=== PATIENT | female | born 1940 | race Caucasian/White ===

== ENCOUNTER → 2017-02-18 16:46 | Outpatient (CLI) | payer MEDICARE, OTHER ==
[2012-07-03 07:28] VITALS: BMI 31.6
== END | disposition home or self-care (01) ==
LOC: D.MAMMO 10:00
DX: Z12.31 Encounter for screening mammogram for malignant neoplasm of breast (principal)

== ENCOUNTER → 2018-10-10 14:28 | Outpatient (CLI) | payer MEDICARE, OTHER ==
[2012-07-03 07:28] VITALS: BMI 31.6
== END | disposition home or self-care (01) ==
LOC: D.HCCARDIO 14:28
PROVIDERS: ATTEND Internal Medicine Cardiovascular Disease
DX: R00.2 Palpitations (principal)

== ENCOUNTER 2020-03-08 14:20 | Inpatient (IN) | payer MEDICARE, OTHER ==
[~2020-03-08] VITALS: Ht 165.1 cm; Wt 81.6 kg
[2020-03-08] MEDS ORDERED: TOPROL XL50 MG PO (14:33)
[2020-03-08 15:03] LABS: BASOPHILS 0.1 % (0-2); EOSINOPHILS 0.1 % (0-7); HEMATOCRIT 40.8 % (36.0-48.0); HEMOGLOBIN 13.5 g/dL (12-16); IMMATURE GRANULOCYTES 0.2 % (0-5); LYMPHOCYTES 7.3 % (15-50); MCHC 33.1 g/dL (31.0-37.0); MCV 90.7 fL (80.0-100.0); MEAN PLATELET VOLUME 9.7 fL (7.4-10.4); MONOCYTES 6.1 % (2-11); NEUTROPHILS 86.2 % (40-80); PLATELET COUNT 220 10x3/uL (130-400); RDW 12.8 % (11.5-14.5); WBC 13.5 10x3/uL (4.8-10.8)
[2020-03-08 15:13] LABS: ANION GAP 11.8 mmol/L (8-16); CALCIUM 8.9 mg/dL (8.5-10.1); CARBON DIOXIDE 25.1 mmol/L (21.0-32.0); CREATININE - SERUM 1.1 mg/dL (0.6-1.3); POTASSIUM - SERUM 3.9 mmol/L (3.5-5.1)
[2020-03-08 15:16] LABS: ALBUMIN 3.5 g/dL (3.4-5.0); APTT 27.1 SECONDS (22.8-39.4); BILIRUBIN - TOTAL 0.44 mg/dL (0.2-1.3); INR 0.89 (0.85-1.17); PROTEIN - SERUM 7.3 g/dL (6.4-8.2); PROTIME 12.1 SECONDS (11.6-15.0)
[2020-03-08 16:36] VITALS: BP 176/61
[2020-03-08] MEDS ORDERED: PROAIR HFA8.5 G1 INH (17:28)
[2020-03-08] MEDS ORDERED: ALENDRONAT70 MG/75 M PO (17:32)
[2020-03-08 17:46] VITALS: BP 146/88; BMI 18.0
--- NOTE | 2020-03-08 19:00 | NUR ---
PATIENT ALERT AND ORIENTED X 3, ALL BUT EXACT TIME. DAUGHTER AT BEDSIDE. PATIENT PP CHECK IN RIGHT LE PALPABLE. PATIENT MOVES TOES ON COMMAND. ASSESSMENT COMPLETE. PIC IN LEFT AC. PATIENT HAS MORPHINE CHERRY PICKER OPERATOR. VERBALIZES UNDERSTANDING OF NPO STATUES, HIBBA CLEANSE, AND CONSENTS. DENIES FURTHER NEEDS. BED LOCKED AND LOWERED. CALL LIGHT CLOSE. CPOC.
[2020-03-08 21:00] VITALS: BP 134/64
--- NOTE | 2020-03-09 01:20 | NUR ---
RESTING WITH NO SIGNS OR SYMPTOMS OF DISTRESS AT THIS TIME. CALL LIGHT REMAINS CLOSE. DAUGHTER REMAINS AT BEDSIDE.
--- NOTE | 2020-03-09 02:55 | NUR ---
ANSWERED PATIENT CALL LIGHT. PATIENT IN PAIN AND TREMBLING. PROVIDED BOLUS DOSE PER ORDER. ICE PACKS APPLIED X 2. PROVIDED SUPPORT TO PATIENT. PAIN MEDICATION BECAME EFFECTIVE. PROVIDED EDUCATION TO BOTH DAUGHTER AND PATIENT. DENIES FURTHER NEEDS AT THIS TIME. CALL LIGHT REMAINS CLOSE. CPOC.
[2020-03-09 06:58] LABS: BASOPHILS 0.1 % (0-2); EOSINOPHILS 0.3 % (0-7); HEMATOCRIT 33.9 % (36.0-48.0); HEMOGLOBIN 10.9 g/dL (12-16); IMMATURE GRANULOCYTES 0.2 % (0-5); LYMPHOCYTES 15.4 % (15-50); MCH 29.5 pg (26.0-34.0); MCHC 32.2 g/dL (31.0-37.0); MCV 91.9 fL (80.0-100.0); MEAN PLATELET VOLUME 10.1 fL (7.4-10.4); MONOCYTES 10.2 % (2-11); NEUTROPHILS 73.8 % (40-80); PLATELET COUNT 204 10x3/uL (130-400); RBC 3.69 10x6/uL (4.00-5.40); RDW 13.3 % (11.5-14.5)
[2020-03-09 07:06] LABS: WBC 9.4 10x3/uL (4.8-10.8)
[2020-03-09 07:31] LABS: ALBUMIN 2.9 g/dL (3.4-5.0); ANION GAP 11.2 mmol/L (8-16); BILIRUBIN - TOTAL 0.4 mg/dL (0.2-1.3); CALCIUM 8.1 mg/dL (8.5-10.1); CARBON DIOXIDE 23.8 mmol/L (21.0-32.0); PROTEIN - SERUM 6.2 g/dL (6.4-8.2)
[2020-03-09 09:01] VITALS: BP 136/62
[2020-03-09 14:34] VITALS: BP 142/62
[2020-03-09 20:05] VITALS: BP 134/65
--- NOTE | 2020-03-09 20:34 | NUR ---
AWAKE,ALERT,NO COMPLAINTS VOICED. IV TO LAC INTACT WITHOUT REDNESS OR EDEMA NOTED.DRESSINGS TO RIGHT HIP INTACT WITHOUT DRAINAGE NOTED.NO COMPLAINTS OF PAIN AT PRESENT. CL IN REACH. DAUGHTER AT BEDSIDE.
[2020-03-10] VITALS: BP 130/69
[2020-03-10 04:00] VITALS: BP 128/72
[2020-03-10 04:59] LABS: BASOPHILS 0 % (0-2); EOSINOPHILS 0.1 % (0-7); HEMATOCRIT 30.1 % (36.0-48.0); HEMOGLOBIN 9.6 g/dL (12-16); IMMATURE GRANULOCYTES 0.3 % (0-5); LYMPHOCYTES 12.6 % (15-50); MCH 29.3 pg (26.0-34.0); MCHC 31.9 g/dL (31.0-37.0); MCV 91.8 fL (80.0-100.0); MEAN PLATELET VOLUME 9.8 fL (7.4-10.4); MONOCYTES 14.7 % (2-11); NEUTROPHILS 72.3 % (40-80); PLATELET COUNT 170 10x3/uL (130-400); RBC 3.28 10x6/uL (4.00-5.40); RDW 13.2 % (11.5-14.5); WBC 9.7 10x3/uL (4.8-10.8)
[2020-03-10 05:22] LABS: ANION GAP 9.3 mmol/L (8-16); CALCIUM 7.4 mg/dL (8.5-10.1); CARBON DIOXIDE 25.2 mmol/L (21.0-32.0); CREATININE - SERUM 1.1 mg/dL (0.6-1.3); MAGNESIUM - SERUM 1.7 mg/dL (1.8-2.4); POTASSIUM - SERUM 4.5 mmol/L (3.5-5.1)
--- NOTE | 2020-03-10 07:00 | NUR ---
A&O RESTING IN BED WITH EYES OPEN. NO C/O PAIN. NO S/S OF ACUTE DISTRESS NOTED. POD #2 RIGHT HIP NAILING, DRESSING C/D/I. ANDERSEN CATHETER PRESENT. ON ELIQUIS FOR DVT PROPHALAXIS. DAUGHTER AT BEDSIDE. IV TO LEFT AC, 1/2 NS INFUSING AT 50ML/HR. SITE PATENT WITHOUT REDNESS OR SWELLING. MAG 1.7 THIS AM, WILL FOLLOW ELECTROLYTE PROTOCOL. DENIES ANY NEEDS AT THIS TIME. CALL LIGHT IN REACH. WILL CONTINUE TO MONITOR.
--- NOTE | 2020-03-10 08:37 | OP ---
PATIENT NAME: BOBBY TRUONG MEDICAL RECORD: [id number] :40 LOCATION:D[id number] ADMISSION DATE:03/08/20 SURGEON: KIMO BARTON DO DATE OF OPERATION: 03/08/2020 PROCEDURE PERFORMED: Right hip intramedullary nailing. PREOPERATIVE DIAGNOSIS: Right hip intertrochanteric fracture. POSTOPERATIVE DIAGNOSIS: Right hip intertrochanteric fracture. INDICATIONS: Ms. Truong is an 80-year-old female who fell yesterday and was lying on her floor for approximately 4 hours, is brought to the ER, seemed to have a right hip fracture. She did not have any other pain anywhere else other than hitting her head. I saw her in the ER and told her we need to fix this and she would be at risk for infection, bleeding, damage to nerves or vessels, need for further surgery, malunion, nonunion, continued pain, blood clots, and even and she signed the consent. SURGEON: Kimo Barton DO DESCRIPTION OF PROCEDURE: Patient was taken to the operative suite, laid in supine position, given general anesthetic and intubated. She was given 2 grams Ancef preoperatively. She was then moved over to the [place] table and the right hip was prepped and draped in sterile fashion. A timeout was performed. Everyone was in agreeance with correct, side, site, the patient and procedure. I then attempted reduction, but due to the reverse obliquity of the fracture, I would decided I would open it and clamp it and then put the nail down which is what I did. I then made a lateral incision over the hip, made careful dissection down to the hip and then with bone reduction clamps, reduced the fracture and then got a good starting point for the nail in the greater trochanter and then opened it up with an awl. I then started reaming. We went from an 8 to a 13, measured the nail length to be 360 was what were were going to use. I then reamed up to a 13 and then put the nail down. Once it was in appropriate position and the fracture was reduced, I put the lag screw in and 95 in length, it was in good position on AP and lateral, adequate. I then did not have her for an AR screw. She had very thin femoral neck and so we abandoned that by locking screw up in the nail through the proximal limb, removed the jig and the bone clamp and the fracture held nicely. I then went distally and got perfect circles and did a distal locking screw in the dynamic hole and measured to be a 38, was put in and fit well. Then, I irrigated thoroughly the sites with normal saline. I then closed the IT band, a large lateral incision with a #1 Vicryl in a [id number] fashion and closed the skin at all other sites with 2-0 Vicryl in interrupted fashion. Prineo glue placed on them and dressed with a Telfa and Tegaderm. She was then awakened and taken to recovery in stable condition. Blood loss approximately 250 mL. COMPLICATIONS: None. TRANSINT:[id number] Voice Confirmation ID: [id number] DOCUMENT ID: [id number] OPERATIVE REPORT [id number] BOBBY TRUONG MICHAEL D, DO at 0837 CC: [id number] DICTATION DATE: 03/09/20 1344 SENIOR ASIC ENGINEER: 03/09/20 2138 ADM IN [facility] [address] [place] [address]
[2020-03-10 08:39] VITALS: BP 141/76
[2020-03-10 12:29] VITALS: BP 137/50
[2020-03-10 13:34] VITALS: Ht 165.1 cm; Wt 81.6 kg
[2020-03-10 17:15] VITALS: BP 147/59
--- NOTE | 2020-03-10 18:30 | NUR ---
RESTING IN BED WITH EYES OPEN. NO C/O PAIN. NO S/S OF ACUTE DISTRESS NOTED. CALL LIGHT IN REACH. WILL CONTINUE TO MONITOR.
[2020-03-10 20:00] VITALS: BP 128/65
--- NOTE | 2020-03-10 20:25 | NUR ---
LYING IN BED TALKING TO DAUGHTER. ALERT AND ORIENTED X4. RES EVEN AND NONLABORED. DRSG X2 NOTED TO RT HIP WITH OLD DRAINAGE MARKED. RATES PAIN IN RT HIP 8. ANDERSEN CATH PATENT AND DRAINING CLEAR YELLOW URINE. 1/2 NS @ 50 ML/HR INFUSING IN LT AC. JIMMY WAIVER ON CHART. NO DISTRESS. SR ELEVATED X2. CL IN REACH.
[2020-03-10 20:39] LABS: BILIRUBIN NEGATIVE (NEGATIVE); GLUCOSE NEGATIVE (NEGATIVE); KETONE NEGATIVE (NEGATIVE); NITRITE NEGATIVE (NEGATIVE); UROBILINOGEN NORMAL (NORMAL)
--- NOTE | 2020-03-10 20:45 | NUR ---
MEDICATED WITH NORCO 10MG FOR C/O RT HIP PAIN. CL IN REACH
--- NOTE | 2020-03-11 01:44 | NUR ---
HAS RESTED WELL SO FAR THIS SHIFT. LYING IN BED WITH EYES CLOSED. RESP NONLABORED. NO DISTRESS. CL IN REACH.
[2020-03-11 04:30] VITALS: BP 101/56
--- NOTE | 2020-03-11 04:41 | NUR ---
MEDICATED WITH NORCO FOR C/O RT HIP PAIN RATING 8. CL IN REACH.
[2020-03-11 07:02] LABS: BASOPHILS 0.1 % (0-2); EOSINOPHILS 0.5 % (0-7); IMMATURE GRANULOCYTES 0.2 % (0-5); LYMPHOCYTES 21.8 % (15-50); MCH 29.1 pg (26.0-34.0); MCV 90.9 fL (80.0-100.0); MEAN PLATELET VOLUME 9.6 fL (7.4-10.4); MONOCYTES 12.5 % (2-11); NEUTROPHILS 64.9 % (40-80); PLATELET COUNT 143 10x3/uL (130-400); RBC 2.75 10x6/uL (4.00-5.40); RDW 13.4 % (11.5-14.5); WBC 8.3 10x3/uL (4.8-10.8)
[2020-03-11 07:30] LABS: ANION GAP 9.4 mmol/L (8-16); CALCIUM 7.2 mg/dL (8.5-10.1); CARBON DIOXIDE 24.7 mmol/L (21.0-32.0); CREATININE - SERUM 0.9 mg/dL (0.6-1.3); POTASSIUM - SERUM 4.1 mmol/L (3.5-5.1)
--- NOTE | 2020-03-11 07:34 | NUR ---
PT IS RESTING IN BED WITH EYES CLOSED. RESPIRATIONS ARE EVEN AND UNLABORED. PT IS EASILY AROUSED WITH VERBAL STIMULATION. PT IS AAO X 4 UPON AROUSAL AND ANSWERS ALL ORIENTATION QUESTIONS APPROPRIATLEY. DRESSING TO RIGHT HIP NOTED WITH SCANT AMOUNT OF DRAINAGE NOTED AND MARKED ON DRESSING. ANDERSEN CATHETER NOTED AND DRAINING WITHOUT DIFFICULTY. YELLOW URINE NOTED TO COLLECTION CHAMBER. FALL WAIVER SIGNED AND IN PT CHART. PT DENIES PRESENCE OF PAIN/N/V/NUMBNESS/TINGLING AT THIS TIME. BED IS IN THE LOWEST POSITIN. CALL LIGHT AND BEDSIDE TABLE ARE WITHIN REACH. SIDE RAILS X 2. PT DENIES FURTHER NEEDS. WILL CONT TO MONITOR.
[2020-03-11 08:00] VITALS: BP 105/57
--- NOTE | 2020-03-11 10:31 | NUR ---
Rehab Note- Acute Inpatient REhab prescreen order received. THe patient is a good inpatient acute rehab candidate when medically stable and in agreeance with [facility] Acute Inpatient Rehab. Will follow at this time. Thank you for this referral! Opal Vega RN Clinical Liaison, [facility] Rehab
[2020-03-11 12:00] VITALS: BP 118/47
[2020-03-11] MEDS ORDERED: ZOFRAN4 MG PO (12:05)
[2020-03-11] MEDS ORDERED: ELIQUIS2.5 MG PO (12:05)
[2020-03-11] MEDS ORDERED: HYDROCODON-ACE1 EAC7 PO (12:05)
[2020-03-11] MEDS ORDERED: Narcan INJ IV (12:05)
[2020-03-11] MEDS ORDERED: HYDROCODON-ACE1 EA10 PO (12:05)
[2020-03-11] MEDS ORDERED: DILAUDID INJ2 MG/ML IV (12:05)
[2020-03-11] MEDS ORDERED: COLACE100 MG PO (12:06)
[2020-03-11] MEDS ORDERED: PROTONIX40 MG PO (12:06)
[2020-03-11 16:00] VITALS: BP 135/85
--- NOTE | 2020-03-11 17:00 | NUR ---
ALL DISCHARGE INSTRUCTIONS COVERED WITH PT AND PT FRIEND AT BEDSIDE. PT DENIES FURTHER QUESTIONS/CONCERNS/NEEDS. ALL DISCHARGE PAPERS SIGNED BY PT FRIEND SY FIGUEROA PER PT REQUEST. PT TO EAT DINNER AND NOTIFY NURSE WHEN READY FOR TRANSPORT DOWN TO REHAB FACILITY. SIGNED DC PAPERS PLACED IN PT CHART. PIV TO LEFT AC REMOVED WITH CATHETER TIP INTACT. DRESSING APPLIED. CLAMPED ANDERSEN IN PLACE. PT EDUCATED ON BLADDER TRAINING AND DENIES FURTHER QUESTIONS/CONCERNS/NEEDS AT THIS TIME.
--- NOTE | 2020-03-11 17:00 | NUR ---
ANDERSEN CLAMPED FOR BLADDER TRAINING.
--- NOTE | 2020-03-11 18:10 | NUR ---
PT TRANSPORTED FROM ROOM VIA WHEELCHAIR ESCORTED BY TOO JAMES CNA TO GO TO REHAB. PT DENIES FURTHER QUESTIONS/CONCERNS/NEEDS AND THANKS THIS NURSE FOR GIVEN DURING THIS SHIFT.
--- NOTE | 2020-03-11 18:40 | MORECARE ---
CASE MANAGEMENT DISCHARGE SUMMARY PATIENT: BOBBY FIGUEROA UNIT: [id number] ADM DATE: 03/08/20 AGE: 80 : 40 SEX: F ROOM/BED: D.2211 AUTHOR: LIVAN COSME PHYSICIAN: REFERRING PHYSICIAN: ABIMBOLA ANGELO MD DATE OF SERVICE: 03/11/20 Discharge Plan Patient Name: BOBBY FIGUEROA Facility: [facility]:[place] : 1940 Planned Disposition: Inpatient Rehab Anticipated Discharge Date: Discharge Date: 03/11/2020 Expected LOS: Initial Reviewer: [email or web address] Initial Review Date: 03/08/2020 Generated: 03/11/20 7:39 pm Coverage Notice Reviewer: [email or web address] Yasir Cunha Notice Issued Date-Time: 03/11/2020 16:05 Notice Type: IM Discharge Notice Notice Delivered To: Family Member Relationship to Patient: Daughter in Law Marine Meteorologist Name: MEHUL FIGUEROA Delivery Method: HAND - Hand Delivered Susanne Days: Prior Verbal Notification: Recipient Understood Notice: Yes Recipient Signature: Yes Med Rec Note Co-signed by Attending: Coverage Notice Comment: Reviewer: [email or web address] Yasir Cunha Notice Issued Date-Time: 03/11/2020 16:05 Notice Type: Patient Choice Letter Notice Delivered To: Family Member Relationship to Patient: Daughter in Law Marine Meteorologist Name: MEHUL FIGUEROA Delivery Method: HAND - Hand Delivered Susanne Days: Prior Verbal Notification: Recipient Understood Notice: Yes Recipient Signature: Yes Med Rec Note Co-signed by Attending: Coverage Notice Comment: INPATIENT REHAB [facility] Patient Name: BOBBY FIGUEROA Page [id number] at 1840 All edits/amendments must be made on the electronic document DICTATION DATE: 03/11/201838 REAL ESTATE OFFICE SUPERVISOR: VICKI 03/11/201838 RPT#: [id number] DC DATE:03/11/20 STATUS: DIS IN [facility] [address] [place] [address] END OF REPORT
--- NOTE | 2020-03-11 18:48 | MORECARE ---
CASE MANAGEMENT DISCHARGE SUMMARY PATIENT: BOBBY FIGUEROA UNIT: [id number] ADM DATE: 03/08/20 AGE: 80 : 40 SEX: F ROOM/BED: D.2211 AUTHOR: CARMELINA,DOC PHYSICIAN: REFERRING PHYSICIAN: ABIMBOLA ANGELO MD DATE OF SERVICE: 03/11/20 Discharge Plan Patient Name: BOBBY FIGUEROA Facility: [facility]:[place] : 1940 Planned Disposition: Inpatient Rehab Anticipated Discharge Date: Discharge Date: 03/11/2020 Expected LOS: Initial Reviewer: [email or web address] Initial Review Date: 03/08/2020 Generated: 03/11/20 7:47 pm Comments DCP- Discharge Planning Updated by [email or web address]: Kathia Cunha on 03/11/20 5:[address] Patient Name: BOBBY FIGUEROA Admission Status: Elective Accout number: [id number] Admission Date: 03-08-2020 : 1940 Admission Diagnosis:DISPLACED INTERTROCHANTERIC FRACTURE OF RIGHT FEMUR, IN Attending: PETEY, Current LOS: 3 Anticipated DC Date: Planned Disposition: Inpatient Rehab Primary Insurance: MEDICARE A & B Discharge Planning Comments:CM met with patient to complete initial dc planning assessment. CM educated patient on the CM role and verbal consent given by patient to complete assessment. Patient lives at home with family. Patient is independent. At discharge patient plans to return home and feels this is a safe discharge. CM discussed availability of home health, rehab services, and medical equipment. Patient will need BSC upon discharge. Patient signed DAKSHA for inpatient rehab. Patient will have family to transport home. Patient denied known discharge needs at this time. D/C IMM signed @ 1605 CM will continue to follow and will assist as needed with dc plans/needs. Proof Sorter: Kathia Cunha DCPIA - Discharge Planning Initial Assessment Updated by [email or web address]: Kathia Cunha on 03/11/20 6:42 pm * Is the patient Alert and Oriented? Yes * How many steps to enter\exit or inside your home? * PCP PETEY * Pharmacy [facility] [address] * Preadmission Environment Home with Family * ADLs Independent * Other Equipment WALKER, CANE, SHOWER CHAIR * List name and contact numbers for known caregivers / representatives who currently or will assist patient after discharge: MEHUL FIGUEROA - DIL- [phone] GODFREY RODRIGUEZ - DAUGHTER - [phone] * Verbal permission to speak to the caregivers and representatives has been obtained from the patient. Yes * Community resources currently utilized None * Additional services required to return to the preadmission environment? No * Can the patient safely return to the preadmission environment? Yes * Has this patient been hospitalized within the prior 30 days at any hospital? No Coverage Notice Reviewer: [email or web address] Cunha Notice Issued Date-Time: 03/11/2020 16:05 Notice Type: IM Discharge Notice Notice Delivered To: Family Member Relationship to Patient: Daughter in Law Automotive Parts Counter Associate Name: MEHUL FIGUEROA Delivery Method: HAND - Hand Delivered Susanne Days: Prior Verbal Notification: Recipient Understood Notice: Yes Recipient Signature: Yes Med Rec Note Co-signed by Attending: Coverage Notice Comment: Reviewer: [email or web address] Cunha Notice Issued Date-Time: 03/11/2020 16:05 Notice Type: Patient Choice Letter Notice Delivered To: Family Member Relationship to Patient: Daughter in Law Automotive Parts Counter Associate Name: MEHUL FIGUEROA Delivery Method: HAND - Hand Delivered Susanne Days: Prior Verbal Notification: Recipient Understood Notice: Yes Recipient Signature: Yes Med Rec Note Co-signed by Attending: Coverage Notice Comment: INPATIENT REHAB [facility] Last DP export: 03/11/20 5:40 p Patient Name: BOBBY FIGUEROA Page [id number] at 1848 All edits/amendments must be made on the electronic document DICTATION DATE: 03/11/201846 PROFESSOR OF PUBLIC ADMINISTRATION: VICKI 03/11/201846 RPT#: [id number] DC DATE:03/11/20 STATUS: DIS IN [facility] [address] [place] [address] END OF REPORT
--- NOTE | 2020-03-13 13:36 | MORECARE ---
CASE MANAGEMENT DISCHARGE SUMMARY PATIENT: BOBBY FIGUEROA UNIT: [id number] ADM DATE: 03/08/20 AGE: 80 : 40 SEX: F ROOM/BED: D.2211 AUTHOR: CARMELINA,DOC PHYSICIAN: REFERRING PHYSICIAN: ABIMBOLA ANGELO MD DATE OF SERVICE: 03/13/20 Discharge Plan Patient Name: BOBBY FIGUEROA Facility: [facility]:[place] : 1940 Planned Disposition: Inpatient Rehab Anticipated Discharge Date: Discharge Date: 03/11/2020 Expected LOS: Initial Reviewer: [email or web address] Initial Review Date: 03/08/2020 Generated: 03/13/20 2:35 pm Comments DCP- Discharge Planning Updated by [email or web address]: Kathia Cunha on 03/11/20 5:[address] Patient Name: BOBBY FIGUEROA Admission Status: Elective Accout number: [id number] Admission Date: 03-08-2020 : 1940 Admission Diagnosis:DISPLACED INTERTROCHANTERIC FRACTURE OF RIGHT FEMUR, IN Attending: PETEY, Current LOS: 3 Anticipated DC Date: Planned Disposition: Inpatient Rehab Primary Insurance: MEDICARE A & B Discharge Planning Comments:CM met with patient to complete initial dc planning assessment. CM educated patient on the CM role and verbal consent given by patient to complete assessment. Patient lives at home with family. Patient is independent. At discharge patient plans to return home and feels this is a safe discharge. CM discussed availability of home health, rehab services, and medical equipment. Patient will need BSC upon discharge. Patient signed DAKSHA for inpatient rehab. Patient will have family to transport home. Patient denied known discharge needs at this time. D/C IMM signed @ 1605 CM will continue to follow and will assist as needed with dc plans/needs. Olericulture Teacher: Kathia Cunha DCPIA - Discharge Planning Initial Assessment Updated by [email or web address]: Kathia Cunha on 03/11/20 6:42 pm * Is the patient Alert and Oriented? Yes * How many steps to enter\exit or inside your home? * PCP PETEY * Pharmacy [facility] [address] * Preadmission Environment Home with Family * ADLs Independent * Other Equipment WALKER, CANE, SHOWER CHAIR * List name and contact numbers for known caregivers / representatives who currently or will assist patient after discharge: MEHUL FIGUEROA - DIL- [phone] GODFREY RODRIGUEZ - DAUGHTER - [phone] * Verbal permission to speak to the caregivers and representatives has been obtained from the patient. Yes * Community resources currently utilized None * Additional services required to return to the preadmission environment? No * Can the patient safely return to the preadmission environment? Yes * Has this patient been hospitalized within the prior 30 days at any hospital? No Coverage Notice Reviewer: [email or web address] Cunha Notice Issued Date-Time: 03/11/2020 16:05 Notice Type: IM Discharge Notice Notice Delivered To: Family Member Relationship to Patient: Daughter in Law Shingle Inspector Name: MEHUL FIGUEROA Delivery Method: HAND - Hand Delivered Susanne Days: Prior Verbal Notification: Recipient Understood Notice: Yes Recipient Signature: Yes Med Rec Note Co-signed by Attending: Coverage Notice Comment: Reviewer: [id number] Cunha Notice Issued Date-Time: 03/11/2020 16:05 Notice Type: Patient Choice Letter Notice Delivered To: Family Member Relationship to Patient: Daughter in Law Shingle Inspector Name: MEHUL FIGUEROA Delivery Method: HAND - Hand Delivered Susanne Days: Prior Verbal Notification: Recipient Understood Notice: Yes Recipient Signature: Yes Med Rec Note Co-signed by Attending: Coverage Notice Comment: INPATIENT REHAB [facility] Last DP export: 03/11/20 5:48 p Patient Name: BOBBY FIGUEROA Page [id number] at 1336 All edits/amendments must be made on the electronic document DICTATION DATE: 03/13/20 1335 DISTRICT MEDICAL EXAMINER: VICKI 03/13/20 1335 RPT#: [id number] DC DATE:03/11/20 STATUS: DIS IN [facility] [address] [place] [address] END OF REPORT
== END 2020-03-11 18:37 | DRG 482 ==
LOC: D.ER 14:20 → D.MS 16:29
PROVIDERS: Family Medicine; Family Medicine Adult Medicine; ADMIT Family Medicine; ATTEND Family Medicine
PROC: 0QH636Z Insertion of Intramedullary Internal Fixation Device into Right Upper Femur, Percutaneous Approach (ICD-10-PCS; principal; 2020-03-08)
DX: S72.141A Displaced intertrochanteric fracture of right femur, initial encounter for closed fracture (principal); I10 Essential (primary) hypertension; W19.XXXA Unspecified fall, initial encounter; M25.511 Pain in right shoulder; S00.03XA Contusion of scalp, initial encounter

== ENCOUNTER 2020-03-11 18:40 | Inpatient (IN) | payer MEDICARE, OTHER ==
[~2020-03-11] VITALS: Ht 165.1 cm; Wt 81.6 kg
[~2020-03-11 18:40] MED LIST: ALENDRONAT70 MG/75 M PO; COLACE100 MG PO; DILAUDID INJ2 MG/ML IV; ELIQUIS2.5 MG PO; HYDROCODON-ACE1 EA10 PO; HYDROCODON-ACE1 EAC7 PO; Narcan INJ IV; PROAIR HFA8.5 G1 INH; PROTONIX40 MG PO; TOPROL XL50 MG PO; ZOFRAN4 MG PO
--- NOTE | 2020-03-11 19:22 | NUR ---
RECIEVED REPORT FROM OFFGOING. ALERT AND ORIENTED X4. UP WITH ASSIST. BLADDER TRAINING IN PLACE. DSG X3 TO RT HIP CDI. DENIES ANY NEEDS AT THIS TIME.
[2020-03-11 23:03] VITALS: BP 139/66
--- NOTE | 2020-03-12 04:33 | NUR ---
RESTING IN BED WITH HOB ELEVATED AND EYES OPEN. C/O NEEDING TO URINATE. REMINDED HER THAT SHE HAS A ANDERSEN CATHETERR IN AND IT WAS NOT TIED OFF AT THIS TIME. ASKED IF SHE FELT THE NEED TO URINATE FREQUENTLY AND REPLIED "YES". WILL REPORT TO ONCOMMING NURSE. NOT SLEEPING WELL TONIGHT STATED LAST TIME SHE WOKE UP IT WAS 0230.APPROXIMATLY 2 HOURS AGO. DENIES ANY OTHER NEEDS.
--- NOTE | 2020-03-12 06:30 | NUR ---
F/C D/C'D THIS AM. C/O HIP PAIN WHEN TURNING TO PUT A BRIEF ON. MED GIVEN PER ORDERS. U/A COLLECTED PRIOR TO D/C.
[2020-03-12 08:27] VITALS: BP 101/60
[2020-03-12 08:37] LABS: BILIRUBIN NEGATIVE (NEGATIVE); KETONE NEGATIVE (NEGATIVE); NITRITE NEGATIVE (NEGATIVE); UROBILINOGEN NORMAL (NORMAL)
[2020-03-12 08:38] LABS: BACTERIA FEW /hpf (NEGATIVE); EPITHELIAL CELLS RARE /hpf (0-5); RED CELLS - URINE 0-5 /hpf (0-5); WHITE CELLS - URINE OCC /hpf (NEGATIVE)
[2020-03-12 10:34] VITALS: Ht 165.1 cm; Wt 81.6 kg
--- NOTE | 2020-03-12 10:51 | NUR ---
SITTING IN WC IN ROOM. JUST FINISHED WITH THERAPY. PAIN MEDS GIVEN FOR PAIN OF 8/10 TO RLE. HAS OVERHEAD FRAME WITH TRAPEZE. CALL LIGHT IN REACH
[2020-03-12 19:06] VITALS: BP 151/81
--- NOTE | 2020-03-12 19:22 | NUR ---
RECIEVED UP IN BED WITH EYES OPEN AND TV ON. ALERT AND ORIENTED X4. HAD THERAPY TODAY AND STATES VERY TIRED. EXPLAINED THE NEW ORDER FOR ATIVAN. VERBAL ACKNOWLEDGEMENT GIVEN.DENIES ANY NEEDS AT THIS TIME.
[2020-03-13 08:00] VITALS: BP 141/76
--- NOTE | 2020-03-13 10:45 | NUR ---
STILL C/O PAIN TO RT HIP. PAIN MEDS GIVEN ORDERED AND REQUESTED. USES OVER HEAD FRAME AND TRAPEZE ON BED.
--- NOTE | 2020-03-13 11:38 | NUR ---
MAX ASST TO TRANSFER FROM TO TOILET AND BACK TO BED. SHE IS WEAK AND NEEDS ASST TO STAND AND PIVOT. PAIN MEDS GIVEN ORDERED.
--- NOTE | 2020-03-13 16:40 | NUR ---
RESTING QUIETLY IN BED AND WATCHING TV. DENIES INCREASED PAIN.
[2020-03-13 19:30] VITALS: BP 141/68
--- NOTE | 2020-03-13 19:30 | NUR ---
ASSESSMENT PER FLOW SHEET, VS OBTAINED, PT REPORTS FLATUS, NO BM TODAY, AND VOIDS WITH NO DIFFICULTY, RIGHT HIP INC WITH DRESSING CDI WITH NO DRAINAGE, PT RATES RIGHT HIP PAIN 03/03, INFORMED PT THAT I WILL SEE WHEN SHE IS DUE FOR PAIN MED, PT VERBALIZES UNDERSTANDING, WENT OVER MENU WITH HER
--- NOTE | 2020-03-13 19:47 | NUR ---
ADM NORCO PO PER MD ORDERS, SEE EMAR, PT INST ON AND DEMONSTRATED I.S. WITH FAIR EFFORT, PT DENIES FURTHER NEEDS, FALL PRECAUTIONS IN PLACE
--- NOTE | 2020-03-13 20:40 | NUR ---
PT AWAKE, OBTAINED TEMP, PT RATES PAIN 01/31, STATES "I FEEL LIKE ITS GOING DOWN", DENIES NEEDS AT THIS TIME, FALL PRECAUTIONS IN PLACE
--- NOTE | 2020-03-13 21:23 | NUR ---
PT AWAKE, ADM 2100 MEDS PER MD ORDERS, SEE EMAR, WITH FRESH H20, PT DENIES NEEDS AT THIS TIME, FALL PRECAUTIONS IN PLACE
--- NOTE | 2020-03-13 22:23 | NUR ---
PT RESTING WITH EYES CLOSED, RESP QUIET, NO DISTRESS NOTED, LEFT UNDISTURBED AT THIS TIME, FALL PRECAUTIONS IN PLACE
--- NOTE | 2020-03-14 00:22 | NUR ---
PT AWAKE, OBTAINED TEMP, ADM NORCO PER MD ORDERS, SEE EMAR, PT DENIES FURTHER NEEDS, FALL PRECAUTIONS IN PLACE
--- NOTE | 2020-03-14 02:00 | NUR ---
PT MACHINE I COREMAKER LIGHT, PT UP TO BR WITH ASSISTANCE VIA WC, VOIDED BY SELF WITH NO DIFFICULTY, PT BACK TO BED, DENIES FURTHER NEEDS, FALL PRECAUTIONS IN PLACE
--- NOTE | 2020-03-14 03:33 | NUR ---
PT RESTING WITH EYES CLOSED, RESP QUIET, NO DISTRESS NOTED, LEFT UNDISTURBED AT THIS TIME, FALL PRECAUTIONS IN PLACE
--- NOTE | 2020-03-14 05:37 | NUR ---
PT AWAKE, ADM 0600 MED AND NORCO PO PER MD ORDERS, SEE EMAR, PT DENIES FURTHER NEEDS AT THIS TIME, FALL PRECAUTIONS IN PLACE
[2020-03-14 06:16] LABS: BASOPHILS 0.1 % (0-2); EOSINOPHILS 2.5 % (0-7); HEMATOCRIT 23.3 % (36.0-48.0); IMMATURE GRANULOCYTES 0.4 % (0-5); LYMPHOCYTES 25.3 % (15-50); MCH 29.4 pg (26.0-34.0); MCHC 32.2 g/dL (31.0-37.0); MCV 91.4 fL (80.0-100.0); MEAN PLATELET VOLUME 9.6 fL (7.4-10.4); MONOCYTES 12.2 % (2-11); NEUTROPHILS 59.5 % (40-80); RBC 2.55 10x6/uL (4.00-5.40); RDW 13.3 % (11.5-14.5); WBC 6.9 10x3/uL (4.8-10.8)
[2020-03-14 06:27] LABS: HEMOGLOBIN 7.5 g/dL (12-16); PLATELET COUNT 233 10x3/uL (130-400)
--- NOTE | 2020-03-14 06:31 | NUR ---
DR CHAPMAN NOTIFIED, REPORT OF HGB AND HCT, STATES "I WILL TAKE CARE OF IT WHEN I SEE HER"
[2020-03-14 08:00] VITALS: BP 150/68
--- NOTE | 2020-03-14 09:04 | NUR ---
PATIENT ADMITTED TO REHAB FROM ACUTE FLOOR. DR. ANGELO IS PATIENT PCP. DME AT HOME IS A WALKER, CANE AND SHOWER CHAIR. DISCHARGE PLANS ARE FOR PATIENT TO RETURN TO HER HOME WITH FAMILY. WILL CONTINUE TO FOLLOW WITH PATIENT.
--- NOTE | 2020-03-14 15:59 | NUR ---
Nutrition Follow-up: Diet: Regular PO intake: 83% average x last 6 meals. She reports that her appetite is good. Last BM: 03/14/20. WT: 180# (03/12/20) Meds reviewed. Labs noted: Glu 115(H) Recommend continue current diet. RD following.
--- NOTE | 2020-03-14 16:45 | NUR ---
22G IV TO LEFT FOREARM. COVERED WITH OPSITE, DATED AND INITIALED
[2020-03-14 20:00] VITALS: BP 127/50
--- NOTE | 2020-03-14 21:00 | NUR ---
SHIFT ASSESSMENT COMPLETED. ADMINISTERED PRESCRIBED MEDICATIONS. C/L IN EASY REACH. RIGHT HIP DRSG CLEAN AND DRY.
--- NOTE | 2020-03-14 21:00 | NUR ---
RECEIVED IN ROOM WITH EYES OPEN. AWAKE AND ALERT. BLOOD TRANSFUSSION IN PROGRESS. NO REACTION NOTED. DENIES ANY NEEDS. MONITOR FOR SAFETY. CALL LIGHT IN REACH. CONTINUE PLAN OF CARE.
--- NOTE | 2020-03-15 04:03 | NUR ---
PATIENT EYES CLOSED. RESPIRATIONS 18 & EVEN. NO ADVERSE REACTION TO BLOOD TRANSFUSION. BED LOW. ALARM ON. CALL LIGHT WITHIN REACH. WILL CONTINUE TO MONITOR.
[2020-03-15 08:00] VITALS: BP 152/73
--- NOTE | 2020-03-15 08:00 | NUR ---
SHIFT ASSMT COMPLETED.UP OOB FOR BREAKFAST.DRESSED AND BREAKFAST GIVEN.CL IN REACH.
--- NOTE | 2020-03-15 14:48 | NUR ---
SITTING UP IN WC IN ROOM FOR LUNCH.CL IN REACH.
[2020-03-15 20:00] VITALS: BP 140/61
--- NOTE | 2020-03-16 04:53 | NUR ---
RESTING IN BED WITH EYES CLOSED. NO S/S OF DISTRESS NOTED. RESP EVEN AND UNLABORED. C/L IN EASY REACH. CONTINUE POC.
[2020-03-16 08:00] VITALS: BP 167/77
--- NOTE | 2020-03-16 08:00 | NUR ---
SHIFT ASSMT COMPLETED.BREAKFAST GIVEN.CL IN REACH.
--- NOTE | 2020-03-16 10:00 | NUR ---
INCONT OF URINE.BED LINENS CHANGED.TAKEN TO BATHROOM.SHOWER GIVEN.DRESSED AND RETURNED TO BED.
--- NOTE | 2020-03-16 12:00 | NUR ---
UP OOB FOR LUNCH.VISIITOR AT BEDSIDE.
--- NOTE | 2020-03-16 16:00 | NUR ---
WILLY SHOWER AND OOB X2 HOURS TODAY.RESTING QUIETLY.NAPPING.
[2020-03-16 20:21] VITALS: BP 136/44
[2020-03-17 06:19] LABS: BASOPHILS 0.1 % (0-2); EOSINOPHILS 1.8 % (0-7); HEMOGLOBIN 10.7 g/dL (12-16); IMMATURE GRANULOCYTES 0.7 % (0-5); LYMPHOCYTES 18.9 % (15-50); MCH 29.1 pg (26.0-34.0); MCHC 31.5 g/dL (31.0-37.0); MCV 92.4 fL (80.0-100.0); MEAN PLATELET VOLUME 9.4 fL (7.4-10.4); MONOCYTES 11.2 % (2-11); NEUTROPHILS 67.3 % (40-80); RBC 3.68 10x6/uL (4.00-5.40); RDW 13.8 % (11.5-14.5); WBC 7.6 10x3/uL (4.8-10.8)
[2020-03-17 06:35] LABS: PLATELET COUNT 323 10x3/uL (130-400)
[2020-03-17 07:08] LABS: ANION GAP 11.2 mmol/L (8-16); CALCIUM 8.5 mg/dL (8.5-10.1); CARBON DIOXIDE 26.5 mmol/L (21.0-32.0); CREATININE - SERUM 0.9 mg/dL (0.6-1.3); POTASSIUM - SERUM 4.7 mmol/L (3.5-5.1)
[2020-03-17 08:00] VITALS: BP 137/71
--- NOTE | 2020-03-17 09:52 | NUR ---
STATES PAIN MEDS WORKING TO RELIEVE PAIN TO RT HIP. STILL USES OVER HEAD FRAME AND TRAPEZE FOR MOTION ASST. USES WALKER AND WC FOR MOVEMENT. BLISTERS NOTED AROUND WOUND WHERE DRESSING HAS BEEN.
--- NOTE | 2020-03-17 13:05 | NUR ---
LAYING IN BED FINISHING LUNCH. STATES PAIN TO RT HIP HAS IMPROVED SINCE PAIN MEDS GIVEN. STILL USING OVERHEAD FRAME AND TRAPEZE TO REPOSITION IN BED. DENIES NEEDS. CALL LIGHT IN REACH
--- NOTE | 2020-03-17 17:38 | NUR ---
SITTING UP IN BED EATING SUPPER. DSG OFF RT HIP. INCISIONS ARE CLEAN AND INTACT. SMALL BLISTER ON TOP OF TOP INCISION ON RT HIP WHERE TAPE WAS. INCISIONS APPEAR TO BE GLUED. CALL LIGHTIN REACH
--- NOTE | 2020-03-17 19:03 | NUR ---
RECEIVED SHIFT REPORT, INFORMED PT THAT I WILL BE BACK SHORTLY TO DO ASSESSMENT, PT VERBALIZES UNDERSTANDING, DENIES NEEDS AT THIS TIME, FALL PRECAUTIONS IN PLACE
[2020-03-17 20:10] VITALS: BP 151/62
--- NOTE | 2020-03-17 20:10 | NUR ---
ASSESSMENT PER FLOW SHEET, VS OBTAINED, PT REPORTS FLATUS, BM TODAY, AND VOIDING WITH NO DIFFICULTY, PT RATES PAIN 5/10, INFORMED PT THAT I WILL CHECK TO SEE WHEN PAIN MED IS DUE, AND BRING IT IN, PT VERBALIZES UNDERSTANDING, DENIES FURTHER NEEDS, FALL PRECAUTIONS IN PLACE
--- NOTE | 2020-03-17 21:37 | NUR ---
PT AWAKE, ADM 2100 MEDS AND PAIN MED PER MD ORDERS, SEE EMAR, WITH FRESH H20, PT UP TO BR WITH ASSISTANCE VIA WALKER, PT INCONT, PT VOIDED WITH NO DIFFICULTY, BRIEFS CHANGED, PT BACK TO BED, DENIES FURTHER NEEDS, FALL PRECAUTIONS IN PLACE
--- NOTE | 2020-03-17 22:30 | NUR ---
PT RESTING WITH EYES CLOSED, RESP QUIET, NO DISTRESS NOTED, LEFT UNDISTURBED AT THIS TIME, FALL PRECAUTIONS IN PLACED
--- NOTE | 2020-03-18 00:34 | NUR ---
PT MANUFACTURING TECHNOLOGY ANALYST LIGHT, PT UP TO BR WITH ASSISTANCE VIA WALKER, VOIDED WITH NO DIFFICULTY, PT BACK TO BED, DENIES FURTHER NEEDS OR PAIN AT THIS TIME
--- NOTE | 2020-03-18 02:16 | NUR ---
PT RESTING WITH EYES CLOSED, RESP QUIET, NO DISTRESS NOTED, LEFT UNDISTURBED AT THIS TIME, FALL PRECAUTIONS IN PLACED
--- NOTE | 2020-03-18 02:55 | NUR ---
PT BOTTLE CLEANER LIGHT, PT UP TO BR WITH ASSISTANCE VIA WALKER, PT VOIDED WITH NO DIFFICULTY, BRIEF CHANGED, PT BACK TO BED, ADM PAIN MED PER MD ORDERS, SEE EMAR, PT DENIES FURTHER NEEDS, FALL PRECAUTIONS IN PLACE
--- NOTE | 2020-03-18 02:55 | NUR ---
PT GLASS FITTER LIGHT, PT PLACED ON BEDPAN, VOIDED WITH NO DIFFICULTY, PT REMOVED FROM BEDPAN, MEAGHAN CARE DONE WITH WET WARM WIPES, WHITE CHUX CHANGED, DRAW SHEET PLACED, PT DENEIS FURTHER NEEDS, FALL PRECAUTIONS IN PLACE
--- NOTE | 2020-03-18 04:18 | NUR ---
PT RESTING WITH EYES CLOSED, RESP QUIET, NO DISTRESS NOTED, LEFT UNDISTURBED AT THIS TIME, FALL PRECAUTIONS IN PLACED
--- NOTE | 2020-03-18 06:03 | NUR ---
PT RESTING WITH EYES CLOSED, AROUSES TO SOFT VERBAL STIMUALTION, PT UP TO BR WITH ASSISTANCE VIA WALKER, PT INCONT, VOIDED WITH NO DIFFICULTY, BRIEF CHANGED, PT BACK TO BED, ADM 0600 MED PER MD ORDERS, SEE EMAR, WITH FRESH H20, TRASH REMOVED, PT RATES PAIN 4/10, STATES "IT'S NOT TO BAD", PT DENIES FURTHER NEEDS
[2020-03-18 08:00] VITALS: BP 148/70
--- NOTE | 2020-03-18 12:34 | NUR ---
SITTING UP IN WC IN ROOM EATING LUNCH. USES WALKER AND WC FOR MOTION ASST. INCISION TO RT HIP OPEN TO AIR AND INTACT.
--- NOTE | 2020-03-18 14:08 | NUR ---
Nutrition Follow-up: Diet: Regular PO intake: ~64% average x last 9 meals. She reports that she has a good appetite and likes the food. She gave food preferences. Last BM: 03/16/20. Wt: 180# (03/12/20) Meds reviewed. Labs noted: Glu 111(H) Recommend continue current diet. Updated food preferences in diet order. RD following.
--- NOTE | 2020-03-18 15:54 | NUR ---
RESTING QUIETLY IN BED. NO NEEDS NOTED. EYES CLOSED. CALL LIGHT IN REACH
--- NOTE | 2020-03-18 20:02 | NUR ---
RECIEVED LAYING IN BED WITH EYES CLOSED. EASILY AROUSES WITH VERBAL STIMULI. ALERT AND ORIENTED X4. UP WITH WALKER AND STAND BY ASSIST. DENIES ANY NEEDS AT THIS TIME.
[2020-03-18 20:40] VITALS: BP 144/64
--- NOTE | 2020-03-19 03:51 | NUR ---
INCONTINENT OF URINE. WEARS A BRIEF IN BED. USES A WALKER TO AMBULATE TO B/R. HAS TO CHANGE BRIEF EACH TIME SHE USES THE B/R.
[2020-03-19 06:21] LABS: BASOPHILS 0.1 % (0-2); EOSINOPHILS 1.8 % (0-7); HEMATOCRIT 33.5 % (36.0-48.0); HEMOGLOBIN 10.6 g/dL (12-16); IMMATURE GRANULOCYTES 0.4 % (0-5); LYMPHOCYTES 25.4 % (15-50); MCH 29.3 pg (26.0-34.0); MCHC 31.6 g/dL (31.0-37.0); MCV 92.5 fL (80.0-100.0); MEAN PLATELET VOLUME 9.3 fL (7.4-10.4); NEUTROPHILS 62.3 % (40-80); PLATELET COUNT 367 10x3/uL (130-400); RBC 3.62 10x6/uL (4.00-5.40); RDW 13.7 % (11.5-14.5); WBC 7.4 10x3/uL (4.8-10.8)
[2020-03-19 07:10] LABS: ANION GAP 10.1 mmol/L (8-16); CALCIUM 8.9 mg/dL (8.5-10.1); CARBON DIOXIDE 26.5 mmol/L (21.0-32.0); POTASSIUM - SERUM 4.6 mmol/L (3.5-5.1)
[2020-03-19 08:00] VITALS: BP 171/65
--- NOTE | 2020-03-19 08:00 | NUR ---
SHIFT ASSMT COMPLETED.CL IN REACH.
--- NOTE | 2020-03-19 12:00 | NUR ---
EATING LUNCH.RESTING IN BED.WILLY THERAPY.
[2020-03-19] MEDS ORDERED: ATIVAN0.5 MG PO (12:18)
--- NOTE | 2020-03-19 12:19 | RHP ---
PATIENT: BOBBY FIGUEROA MEDICAL RECORD: [id number] ACCOUNT: [id number] LOCATION:[facility]1117 : 40 ADMISSION DATE: 03/11/20 REHABILITATION HISTORY AND PHYSICAL EXAMINATION POST ADMISSION PHYSICIAN EXAMINATION POST ADMISSION PHYSICAL EXAMINATION AND HISTORY AND PHYSICAL ADMITTING DIAGNOSIS: Acute comminuted fracture of the right intertrochanteric femur. HISTORY OF PRESENT ILLNESS: The patient is an 80-year-old female patient who was found on the floor for approximately 5 hours. She had pain in the right hip. States she hit her head. Pelvis x-ray showed a right intertrochanteric hip fracture. CT was basically normal. The patient had an open reduction internal fixation. She has had acute postop anemia. She has had postop pain. She has been progressing slowly with PT. She is weightbearing as tolerated to her right lower extremity. She has had some blood loss anemia. The patient is on electrolyte protocol. She got a Newell catheter at this time. She has got proximal muscle weakness, balance disturbance, decreased activity tolerance, impaired mobility, decreased range of motion, decreased strength, gait disturbance, limited safety awareness. She has medical complexity and risk for falls. These are barriers to her discharge home. She lives at home with her son, was independent with ADLs and mobility prior to this. She is currently set up for max assist for ADLs and mod to max assist for mobility using a rolling walker. She would like to return home at her prior level of functioning. COMORBIDITIES: Include hypertension, closed intertrochanteric hip fracture, acute blood loss anemia, impaired mobility, right shoulder pain and weakness. PAST MEDICAL HISTORY: Significant for COPD, history of diverticulitis, urinary incontinence, hypertension. PAST SURGICAL HISTORY: Includes hysterectomy, shoulder surgery. ALLERGIES: PENICILLIN. CURRENT MEDICATIONS: Include metoprolol 50 mg daily, Protonix 40 mg daily, Ventolin updrafts as needed, Eliquis 2.5 mg b.i.d., Zofran 4 mg q.4 hours p.r.n., [place] 1 tab q.4 hours p.r.n., and Colace p.r.n. HABITS: No alcohol or tobacco use. FAMILY HISTORY: Noncontributory. SOCIAL HISTORY: The patient hopes to return back home and get back to her prior level of functioning. REVIEW OF SYSTEMS: GENERAL: Does complain of some weakness and fatigue. HEENT: Denies cold, cough, or congestion. CARDIOVASCULAR: Denies chest pain. PHYSICAL EXAMINATION: VITAL SIGNS: Stable, afebrile. HISTORY AND PHYSICAL [id number] BOBBY FIGUEROA GENERAL: A well-developed elderly female, in no acute distress upon exam. HEENT: Normocephalic and atraumatic. Mucosa moist. NECK: Supple. No lymphadenopathy. LUNGS: Clear at this time. No wheezing or rales. HEART: Regular rate and rhythm. No murmurs, rubs or gallops. ABDOMEN: Soft, benign and nondistended. Positive bowel sounds times 4. EXTREMITIES: No clubbing, cyanosis or edema. Postop area appears within normal limits. ASSESSMENT: An 80-year-old female patient admitted to the rehab with a working diagnosis of status post open reduction and internal fixation of an intertrochanteric hip fracture. The patient has potential to make improvement. We instituted the following multidisciplinary therapies including but not limited to physical, occupational, respiratory, speech, nutritional services, prosthetics and orthotics. Given her complex medical condition and risk for more complications, rehabilitation services cannot be provided at a low level of care such as skilled nurse facility. PLAN: 1. Admit to [facility] for inpatient therapy to include the following disciplines; A. Physical therapy to improve gait, all transfer skills and bed mobility to a modified independent level. B. Occupational therapy to improve activities of daily living. C. Case management to help with discharge planning and placement options. D. Nutrition to assist with nutritional needs. E. Rehabilitation nursing to assist in monitoring the patient's underlying medical conditions and to assist with any type of bowel or bladder management. 2. The patient's current medication and medical care will be continued. 3. The patient will be placed on standard fall precautions. 4. The patient's estimated length of stay is approximately 7-10 days. 5. We will discuss the patient's care team staff meeting this week. We will go ahead and add her a little bit of Ativan for anxiety as needed. Follow up her blood counts and see again in the a.m. TRANSINT:[id number] Voice Confirmation ID: [id number] DOCUMENT ID: [id number] MUKUND notes whether there has been none or any medical/functional change since admission: - No change since prescreen. MUKUND attests patient continues to be appropriate for IRF: - Continues to be appropriate. HISTORY AND PHYSICAL [id number] BOBBY FIGUEROA,YUE LEVI MD at 1219 CC: [id number] DICTATION DATE: 03/12/20 1256 ZINC PLATING MACHINE OPERATOR: 03/12/20 1609 ADM IN [place] [id number] [place] [address]
--- NOTE | 2020-03-19 13:23 | NUR ---
CARE TEAM MEETING: PATIENT IS DOING WELL IN THERAPY. HER TENATIVE DC DATE IS 03/28/20. WILL CONTINUE TO FOLLOW WITH PATIENT. PRIMARY NURSE HAS SPOKEN WITH DAUGHTER.
--- NOTE | 2020-03-19 18:57 | NUR ---
RECEIVED BEDSIDE REPORT. PT SITTING UP IN BED WATCHING TV. ALERT AND ORIENTED X4. RIGHT HIP INCISION OPEN TO AIR. RIGHT FOREARM IV WITHOUT REDNESS OR SWELLING. DENIES ANY NEEDS OR PAIN. NO SIGNS OF ACUTE DISTRESS NOTED. CALL LIGHT AND WATER WITHIN REACH. FALL PRECAUTIONS IN PLACE. CPOC
[2020-03-19 21:33] VITALS: BP 129/59
--- NOTE | 2020-03-19 23:39 | NUR ---
PT LYING IN BED EYES CLOSED RESTING. RR EVEN AND UNLABORED. CALL LIGHT WITHIN REACH. FALL PRECAUTIONS IN PLACE. CPOC
--- NOTE | 2020-03-20 02:30 | NUR ---
ASSISTED PT TO RESTROOM AND BACK WITH MIN ASSIST. DENIES ANY OTHER NEEDS OR PAIN. NO SIGNS OF ACUTE DISTRESS NOTED. CALL LIGHT WITHIN REACH.
--- NOTE | 2020-03-20 05:10 | NUR ---
PT LYING IN BED EYES CLOSED RESTING. NO ACUTE CHANGES IN CONDITION NOTED THIS SHIFT. CALL LIGHT AND WATER WITHIN REACH. FALL PRECAUTIONS IN PLACE. CPOC
[2020-03-20 08:00] VITALS: BP 140/74
--- NOTE | 2020-03-20 08:00 | NUR ---
SHIFT ASSMT COMPLETED.BREAKFAST GIVEN.MEAL SET-UP PROVIDED.CL IN REACH.
--- NOTE | 2020-03-20 12:55 | NUR ---
LUNCH GIVEN.UP IN WC AT BEDSIDE.
[2020-03-20 19:30] VITALS: BP 132/55
--- NOTE | 2020-03-21 04:13 | NUR ---
PT UP X2 THROUGH THE NIGHT TO USE THE BATHROOM. 0409 COMPLAINT OF PAIN IN LEFT LEG AND REQUESTING PAIN MEDICATION. MEDICATION ADMINISTERED PER ORDERS. NO FURTHER COMPLAINTS AT THIS TIME. WILL CONTINUE TO MONITOR. CALL LIGHT IN REACH AND BED IN LOWEST POSITION
[2020-03-21 07:52] LABS: BASOPHILS 0.1 % (0-2); EOSINOPHILS 1.9 % (0-7); HEMATOCRIT 32.8 % (36.0-48.0); HEMOGLOBIN 10.4 g/dL (12-16); IMMATURE GRANULOCYTES 0.3 % (0-5); LYMPHOCYTES 21.6 % (15-50); MCH 29.3 pg (26.0-34.0); MCHC 31.7 g/dL (31.0-37.0); MCV 92.4 fL (80.0-100.0); MEAN PLATELET VOLUME 9.1 fL (7.4-10.4); MONOCYTES 10.2 % (2-11); NEUTROPHILS 65.9 % (40-80); PLATELET COUNT 393 10x3/uL (130-400); RBC 3.55 10x6/uL (4.00-5.40); RDW 13.7 % (11.5-14.5); WBC 6.9 10x3/uL (4.8-10.8)
[2020-03-21 08:00] VITALS: BP 133/49
[2020-03-21 08:03] LABS: ANION GAP 10.5 mmol/L (8-16); CALCIUM 8.6 mg/dL (8.5-10.1); CARBON DIOXIDE 27.6 mmol/L (21.0-32.0); CREATININE - SERUM 1.1 mg/dL (0.6-1.3); POTASSIUM - SERUM 4.1 mmol/L (3.5-5.1)
--- NOTE | 2020-03-21 14:53 | NUR ---
LAYING IN BED WATCHING TV. SON VISITED TODAY. SHE IS STILL USING WALKER FOR AMBULATION ASST. ALSO USING OVERHEAD FRAME WITH TRAPEZE. DENIES NEEDS. CALL LIGHT IN REACH
--- NOTE | 2020-03-21 20:00 | NUR ---
PATIENT RECEIVED SITTING UP IN BED. ASSESSMENT & VITAL SIGNS DONE. RIGHT HIP NO REDNESS. STERI STRIPS IN PLACE. USES TRAPEZE FOR ADJUSTMENT IN BED. BED LOW. CALL LIGHT WITHIN REACH. WILL CONTINUE TO MONITOR.
[2020-03-21 20:17] VITALS: BP 128/62
--- NOTE | 2020-03-22 01:17 | NUR ---
PATIENT ASSIST INTO BATHROOM USING ROLLING WALKER. VOID ONLY. BRIEF CHANGED. PAJAMA BOTTOMS ON. PATIENT SLOW AMBULATION BACK TO BED. PATIENT ASSIST WITH LEGS INTO BED. BED LOW. CALL LIGHT WITHIN REACH. WILL CONTINUE TO MONITOR.
--- NOTE | 2020-03-22 02:35 | NUR ---
PATIENT USED CALL LIGHT FOR ASSIST. MINIMAL ASSIST IN & OUT OF BED. PATIENT HAS SLOW STEADY AMBULATION USING ROLLING WALKER TO BATHROOM. VOID ONLY. PATIENT RETURNED TO LOW BED. RIGHT LEG ELEVATED ON PILLOW. CALL LIGHT WITHIN REACH. WILL CONTINUE TO MONITOR.
--- NOTE | 2020-03-22 02:37 | NUR ---
I have reviewed this patient and I concur with the Shift Assessment completed by the Licensed Practical Nurse today this shift.
[2020-03-22 08:00] VITALS: BP 123/66
--- NOTE | 2020-03-22 12:06 | NUR ---
SITTING IN WC IN ROOM WAITING ON LUNCH. HAS BEEN UP IN ROOM USING WALKER TO AMBULATE. INCISION TO RT HIP IS OPEN TO AIR. TINY AMT OF DRAINAGE NOTED FROM INCISION. CALL LIGHT IN REACH
--- NOTE | 2020-03-22 20:00 | NUR ---
PATIENT RECEIVED SITTING UP IN BED WATCHING TV. ASSESSMENT & VITAL SIGNS DONE. NO C/O PAIN OR DISTRESS AT THIS TIME. BED LOW. CALL LIGHT WITHIN REACH. WILL CONTINUE TO MONITOR.
[2020-03-22 20:46] VITALS: BP 129/60
--- NOTE | 2020-03-23 00:19 | NUR ---
PATIENT REQUEST TO BE TOLIETED WHILE THIS NURSE WAS IN ROOM HELPING PATIENT IN A BED TO TOLIET. THIS PATIENT STAND BY ASSIST USING ROLLING WALKER. RETURNED TO LOW BED. ALARM ON. CALL LIGHT WITHIN REACH. WILL CONTINUE TO MONITOR.
--- NOTE | 2020-03-23 05:23 | NUR ---
I have reviewed this patient and I concur with the Shift Assessment completed by the Licensed Practical Nurse today this shift.
--- NOTE | 2020-03-23 05:36 | NUR ---
PATIENT MINIMAL ASSIST IN & OUT OF BED. PATIENT USED ROLLING WALKER TO COMMODE. ASSIST WITH FEET INTO BRIEF. RETURNED TO LOW BED. CALL LIGHT WITHIN REACH. WILL CONTINUE TO MONITOR.
[2020-03-23 08:00] VITALS: BP 115/57
--- NOTE | 2020-03-23 12:21 | NUR ---
SITTING UP IN BED FOR LUNCH. HAS BEEN SITTING IN WC TODAY DOING EXERCISES. SHE HAD SHOWER THIS AM AND WASHED HERSELF BY HERSELF. INCISION TO RT HIP INTACT. SMALL DRAINAGE NOTED.
--- NOTE | 2020-03-23 17:48 | NUR ---
SITTING UP IN BED EATING SUPPER. HAS BEEN UP AND DOWN SEVERAL TIMES TODAY GOING TO BATHROOM. SHE IS GETTING MORE INDEPENDENT EACH TIME. STILL USES OVERHEAD FRAME AND TRAPEZE FOR POSITION ASST. PAIN MEDS EFFECTIVE IN CONTROLLING PAIN. CALL LIGHT IN REACH
[2020-03-23 20:00] VITALS: BP 133/61
--- NOTE | 2020-03-23 20:20 | NUR ---
PATIENT RECEIVED SITTING UP IN BED. GRANDDAUGHTER AT BEDSIDE. ASSESSMENT & VITAL SIGNS DONE. NO C/O PAIN OR DISTRESS. SIVAN HAD DIRTY CLOTHING IN BAG & WAS TAKING IT TO BE WASHED. BED LOW. WALKER AT BEDSIDE. CALL LIGHT WITHIN REACH. WILL CONTINUE TO MONITOR.
--- NOTE | 2020-03-23 23:13 | NUR ---
PATIENT USED CALL LIGHT FOR ASSIST. PATIENT MINIMAL ASSIST WITH LEGS INTO BED. STANDBY OUT OF BED. PATIENT TOILETED. FIXED PAD IN BRIEF. VOID ONLY. RETURNED TO LOW BED. PATIENT USED TRAPEZE TO PULL SELF UP IN BED. CALL LIGHT WITHIN REACH. WILL CONTINUE TO MONITOR.
--- NOTE | 2020-03-24 02:56 | NUR ---
I have reviewed this patient and I concur with the Shift Assessment completed by the Licensed Practical Nurse today this shift.
[2020-03-24 07:25] LABS: ANION GAP 11.7 mmol/L (8-16); CALCIUM 8.6 mg/dL (8.5-10.1); CARBON DIOXIDE 27.8 mmol/L (21.0-32.0); CREATININE - SERUM 1.1 mg/dL (0.6-1.3); POTASSIUM - SERUM 4.5 mmol/L (3.5-5.1)
[2020-03-24 07:42] LABS: BASOPHILS 0.1 % (0-2); EOSINOPHILS 0.8 % (0-7); HEMATOCRIT 34.8 % (36.0-48.0); HEMOGLOBIN 10.9 g/dL (12-16); IMMATURE GRANULOCYTES 0.1 % (0-5); LYMPHOCYTES 13.9 % (15-50); MCH 29.1 pg (26.0-34.0); MCHC 31.3 g/dL (31.0-37.0); MEAN PLATELET VOLUME 9.2 fL (7.4-10.4); MONOCYTES 10.1 % (2-11); PLATELET COUNT 455 10x3/uL (130-400); RBC 3.74 10x6/uL (4.00-5.40); RDW 13.8 % (11.5-14.5); WBC 7.3 10x3/uL (4.8-10.8)
[2020-03-24 08:32] VITALS: BP 135/45
--- NOTE | 2020-03-24 10:32 | NUR ---
PAIN MEDS EFFECTIVE FOR PAIN CONTROL. SHE STATES WEATHER CAUSES HER HIP TO HURT MORE. USES WC AND WALKER FOR AMBULATION ASST. STILL USES OVERHEAD FRAME AND TRAPEZE FOR POSITION ASST. SHE IS ABLE TO HER HER BLE IN BED BY HERSELF NOW.
--- NOTE | 2020-03-24 16:27 | NUR ---
Nutrition Follow-up: Diet: Regular PO intake: ~58% average x last 6 meals, 100% of lunch meal. She states that her appetite is good and she likes the food from the kitchen. Last BM: 03/22/20. Wt: 180# (03/12/20) Meds reviewed. Labs noted: Glu 108(H) Recommend continue current diet. RD following.
--- NOTE | 2020-03-24 19:47 | NUR ---
PT ASLEEP,AROUSES EASILY TO VOICE, NO IMMEDIATE NEEDS NOTED, RESPIRATIONS EVEN UNLABORED, FALL PRECAUTIONS IN PLACE, FLUIDS/CALL LIGHT WITHIN REACH
[2020-03-24 21:14] VITALS: BP 142/69
--- NOTE | 2020-03-25 | NUR ---
PT TOILETED RT HIP INCISION HAS GLUED TAPE COVERING THE CENTER OF INCISION WAS PROFUSLY DRAINING BLOOD PRESSURE DRESSING APPLIED, PRN NORCO GIVEN, ICE PACK APPLIED WILL CONTINUE TO MONITOR, PT IS A&O ABLE TO ALERT NURSE IF ISSUE PERSISTS OR WORSENS.
--- NOTE | 2020-03-25 03:25 | NUR ---
PT C/O HIP PAIN TOO EARLY FOR PRN NORCO, 500MG PRN TYLENOL GIVEN
--- NOTE | 2020-03-25 03:33 | NUR ---
PT ASLEEP,AROUSES EASILY TO VOICE, RESPIRATIONS EVEN/UNLABORED, NO IMMEDIATE NEEDS NOTED, FALL PRECAUTIONS IN PLACE, FLUIDS/CALL LIGHT WITHIN REACH
--- NOTE | 2020-03-25 08:00 | NUR ---
SHIFT ASSMT COMPLETED.
[2020-03-25 08:04] VITALS: BP 124/53
[2020-03-25 20:02] VITALS: BP 128/59
--- NOTE | 2020-03-25 20:02 | NUR ---
PT IN BED WATCHING TV, NO NEEDS NOTED, RESPIRATIONS EVEN/UNLABORED, FALL PRECAUTIONS IN PLACE, FLUIDS/CALL LIGHT WITHIN REACH
[2020-03-25 20:37] LABS: ERYTHROCYTE SEDIMENTATION RATE 41 mm/hr (0-30)
--- NOTE | 2020-03-26 04:17 | NUR ---
PT UP TO TOILET DRY BRIEF GIVEN, NO NEEDS NOTED, RESPIRATIONS EVEN/UNLABORED, FALL PRECAUTIONS IN PLACE, FLUIDS/CALL LIGHT WITHIN REACH
[2020-03-26 06:35] LABS: BASOPHILS 0.3 % (0-2); EOSINOPHILS 1.3 % (0-7); HEMATOCRIT 33.2 % (36.0-48.0); HEMOGLOBIN 10.5 g/dL (12-16); IMMATURE GRANULOCYTES 0.2 % (0-5); MCH 29.2 pg (26.0-34.0); MCHC 31.6 g/dL (31.0-37.0); MCV 92.2 fL (80.0-100.0); MEAN PLATELET VOLUME 9.1 fL (7.4-10.4); MONOCYTES 12.9 % (2-11); NEUTROPHILS 67.3 % (40-80); PLATELET COUNT 421 10x3/uL (130-400); RDW 13.8 % (11.5-14.5); WBC 6.2 10x3/uL (4.8-10.8)
[2020-03-26 07:35] LABS: ANION GAP 13.5 mmol/L (8-16); CALCIUM 8.3 mg/dL (8.5-10.1); CARBON DIOXIDE 25.4 mmol/L (21.0-32.0); CREATININE - SERUM 0.9 mg/dL (0.6-1.3); POTASSIUM - SERUM 4.9 mmol/L (3.5-5.1)
[2020-03-26 08:00] VITALS: BP 127/65
--- NOTE | 2020-03-26 08:00 | NUR ---
SHIFT ASSMT COMPLETED.CL IN REACH.UP IN CHAIR TO THERAPY.
--- NOTE | 2020-03-26 08:15 | NUR ---
HERE.PLAN TO TAKE TO SURGERY.D/C ORDERS R/N.PLACED NPO AT THIS TIME.BREAKFAST EATEN.
--- NOTE | 2020-03-26 09:25 | NUR ---
DUE TO CHANGE IN MEDICAL CONDITION, PATIENT DISCHARGED FROM REHAB AND ADMITTED TO ACUTE FLOOR AND WILL DC HOME FROM THERE.
--- NOTE | 2020-03-26 11:00 | NUR ---
TAKEN TO 2233/WC.REMAINS NPO.REPORT CALLED.
== END 2020-03-26 10:44 | disposition short-term general hospital (02) | DRG 560 ==
LOC: D.REHAB 18:40
PROVIDERS: Orthopaedic Surgery; ADMIT Emergency Medicine; ATTEND Emergency Medicine
DX: S72.141D Displaced intertrochanteric fracture of right femur, subsequent encounter for closed fracture with routine healing (principal); D62 Acute posthemorrhagic anemia; T81.30XA Disruption of wound, unspecified, initial encounter; I10 Essential (primary) hypertension; R53.1 Weakness; M25.511 Pain in right shoulder; M62.81 Muscle weakness (generalized); R26.9 Unspecified abnormalities of gait and mobility

== ENCOUNTER → 2020-04-07 15:38 | Outpatient (CLI) | payer MEDICARE, OTHER ==
[2020-03-27 14:05] VITALS: BMI 29.9
[~2020-04-07 15:38] MED LIST changes: +ATIVAN0.5 MG PO; +BAYER CHEWABLE81 MG PO
[2020-04-07 16:53] LABS: EOSINOPHILS 3.3 % (0-7); HEMATOCRIT 35.9 % (36.0-48.0); HEMOGLOBIN 11.2 g/dL (12-16); IMMATURE GRANULOCYTES 0.3 % (0-5); LYMPHOCYTES 22.6 % (15-50); MCH 29.3 pg (26.0-34.0); MCHC 31.2 g/dL (31.0-37.0); MONOCYTES 14.8 % (2-11); PLATELET COUNT 292 10x3/uL (130-400); RBC 3.82 10x6/uL (4.00-5.40); RDW 14.1 % (11.5-14.5); WBC 6.7 10x3/uL (4.8-10.8)
[2020-04-07 19:48] LABS: ERYTHROCYTE SEDIMENTATION RATE 13 mm/hr (0-30)
== END | disposition home or self-care (01) ==
LOC: D.LABREF 15:38
PROVIDERS: ATTEND Orthopaedic Surgery
DX: Z47.89 Encounter for other orthopedic aftercare (principal); L03.115 Cellulitis of right lower limb

== ENCOUNTER → 2020-04-14 17:44 | Outpatient (CLI) | payer MEDICARE, OTHER ==
[2020-03-27 14:05] VITALS: BMI 29.9
[2020-04-14 18:31] LABS: BASOPHILS 1.8 % (0-2); EOSINOPHILS 4.8 % (0-7); HEMOGLOBIN 10.9 g/dL (12-16); IMMATURE GRANULOCYTES 0.2 % (0-5); LYMPHOCYTES 32.3 % (15-50); MCH 29.2 pg (26.0-34.0); MCHC 31.1 g/dL (31.0-37.0); MCV 93.8 fL (80.0-100.0); MEAN PLATELET VOLUME 10.3 fL (7.4-10.4); MONOCYTES 7.6 % (2-11); NEUTROPHILS 53.3 % (40-80); PLATELET COUNT 279 10x3/uL (130-400); RBC 3.73 10x6/uL (4.00-5.40); RDW 14.3 % (11.5-14.5); WBC 4.3 10x3/uL (4.8-10.8)
[2020-04-14 19:37] LABS: ERYTHROCYTE SEDIMENTATION RATE 29 mm/hr (0-30)
== END | disposition home or self-care (01) ==
LOC: D.LAB 17:44
PROVIDERS: ATTEND Orthopaedic Surgery
DX: T81.41XA Infection following a procedure, superficial incisional surgical site, initial encounter (principal); L03.115 Cellulitis of right lower limb; B95.61 Methicillin susceptible Staphylococcus aureus infection as the cause of diseases classified elsewhere; B96.20 Unspecified Escherichia coli [E. coli] as the cause of diseases classified elsewhere

== ENCOUNTER → 2020-04-21 16:15 | Outpatient (CLI) | payer MEDICARE, OTHER ==
[2020-03-27 14:05] VITALS: BMI 29.9
[2020-04-21 17:29] LABS: BASOPHILS 1.7 % (0-2); EOSINOPHILS 5.4 % (0-7); HEMATOCRIT 34.6 % (36.0-48.0); HEMOGLOBIN 10.9 g/dL (12-16); MCH 29.1 pg (26.0-34.0); MCHC 31.5 g/dL (31.0-37.0); MCV 92.3 fL (80.0-100.0); MEAN PLATELET VOLUME 10.4 fL (7.4-10.4); MONOCYTES 16.5 % (2-11); NEUTROPHILS 48.4 % (40-80); PLATELET COUNT 274 10x3/uL (130-400); RBC 3.75 10x6/uL (4.00-5.40); RDW 14.1 % (11.5-14.5); WBC 5.4 10x3/uL (4.8-10.8)
[2020-04-21 19:35] LABS: ERYTHROCYTE SEDIMENTATION RATE 1 mm/hr (0-30)
== END | disposition home or self-care (01) ==
LOC: D.LAB 16:15
PROVIDERS: ATTEND Orthopaedic Surgery
DX: T81.41XA Infection following a procedure, superficial incisional surgical site, initial encounter (principal); B95.61 Methicillin susceptible Staphylococcus aureus infection as the cause of diseases classified elsewhere; L03.115 Cellulitis of right lower limb; Z79.2 Long term (current) use of antibiotics

== ENCOUNTER 2020-04-25 14:00 | Emergency (ER) | payer MEDICARE, OTHER ==
[~2020-04-25] VITALS: Ht 165.1 cm; Wt 82.7 kg
[2020-04-25 14:16] VITALS: BP 171/76; Ht 165.1 cm; Wt 82.7 kg
[2020-04-25 15:29] LABS: BASOPHILS 0.9 % (0-2); EOSINOPHILS 6.2 % (0-7); HEMATOCRIT 34.6 % (36.0-48.0); HEMOGLOBIN 11.1 g/dL (12-16); MCH 29.1 pg (26.0-34.0); MCHC 32.1 g/dL (31.0-37.0); MCV 90.8 fL (80.0-100.0); MEAN PLATELET VOLUME 9.5 fL (7.4-10.4); MONOCYTES 14.8 % (2-11); NEUTROPHILS 37.1 % (40-80); RBC 3.81 10x6/uL (4.00-5.40); RDW 13.7 % (11.5-14.5); WBC 4.5 10x3/uL (4.8-10.8)
[2020-04-25 15:33] LABS: PLATELET COUNT 206 10x3/uL (130-400)
[2020-04-25 15:38] LABS: ANION GAP 11.8 mmol/L (8-16); CALCIUM 9.2 mg/dL (8.5-10.1); CARBON DIOXIDE 26.7 mmol/L (21.0-32.0); POTASSIUM - SERUM 4.5 mmol/L (3.5-5.1)
[2020-04-25 15:44] LABS: ALBUMIN 3.3 g/dL (3.4-5.0); BILIRUBIN - TOTAL 0.34 mg/dL (0.2-1.3); PROTEIN - SERUM 7.4 g/dL (6.4-8.2)
[2020-04-25 17:26] LABS: BILIRUBIN NEGATIVE (NEGATIVE); KETONE NEGATIVE (NEGATIVE); NITRITE NEGATIVE (NEGATIVE); UROBILINOGEN NORMAL mg/dL (< 2)
== END 2020-04-25 17:44 | disposition home or self-care (01) ==
LOC: D.ER 14:00
PROVIDERS: Family Medicine
DX: M25.561 Pain in right knee (principal); I10 Essential (primary) hypertension; J44.9 Chronic obstructive pulmonary disease, unspecified

== ENCOUNTER → 2020-04-28 19:29 | Outpatient (CLI) | payer MEDICARE, OTHER ==
[2020-04-25 14:16] VITALS: BMI 30.3
[2020-04-28 22:01] LABS: EOSINOPHILS 5.1 % (0-7); HEMATOCRIT 36.3 % (36.0-48.0); HEMOGLOBIN 11.5 g/dL (12-16); LYMPHOCYTES 34.3 % (15-50); MCH 29.8 pg (26.0-34.0); MCHC 31.7 g/dL (31.0-37.0); MEAN PLATELET VOLUME 10.3 fL (7.4-10.4); MONOCYTES 9.6 % (2-11); PLATELET COUNT 230 10x3/uL (130-400); RBC 3.86 10x6/uL (4.00-5.40); RDW 14.1 % (11.5-14.5)
[2020-04-28 22:53] LABS: ERYTHROCYTE SEDIMENTATION RATE 5 mm/hr (0-30)
== END | disposition home or self-care (01) ==
LOC: D.LABREF 19:29
PROVIDERS: ATTEND Orthopaedic Surgery
DX: T81.41XA Infection following a procedure, superficial incisional surgical site, initial encounter (principal); B95.61 Methicillin susceptible Staphylococcus aureus infection as the cause of diseases classified elsewhere

== ENCOUNTER → 2020-05-05 16:34 | Outpatient (CLI) | payer MEDICARE, OTHER ==
[2020-04-25 14:16] VITALS: BMI 30.3
[2020-05-05 16:40] LABS: BASOPHILS 0.4 % (0-2); EOSINOPHILS 4.2 % (0-7); HEMATOCRIT 36.9 % (36.0-48.0); HEMOGLOBIN 11.7 g/dL (12-16); IMMATURE GRANULOCYTES 0.4 % (0-5); LYMPHOCYTES 34.9 % (15-50); MCH 28.9 pg (26.0-34.0); MCHC 31.7 g/dL (31.0-37.0); MCV 91.1 fL (80.0-100.0); MEAN PLATELET VOLUME 10.1 fL (7.4-10.4); MONOCYTES 14.3 % (2-11); NEUTROPHILS 45.8 % (40-80); PLATELET COUNT 253 10x3/uL (130-400); RBC 4.05 10x6/uL (4.00-5.40); RDW 13.8 % (11.5-14.5); WBC 5.2 10x3/uL (4.8-10.8)
[2020-05-05 17:47] LABS: ERYTHROCYTE SEDIMENTATION RATE 18 mm/hr (0-30)
== END | disposition home or self-care (01) ==
LOC: D.LAB 16:34
PROVIDERS: ATTEND Orthopaedic Surgery
DX: M00.9 Pyogenic arthritis, unspecified (principal)